=== PATIENT | female | born 1990 | race Caucasian/White ===

== ENCOUNTER 2022-02-07 13:41 | Emergency (ER) | payer MEDICAID, SELFPAY ==
[2022-02-07 13:56] VITALS: BP 101/67; PULSE 63; RESP 18; TEMP 36.3; O2SAT 98; BMI 25.0
--- NOTE | 2022-02-07 14:59 | CRLHL7_ITS ---
For Patients: As a result of the Century Cures Act, medical imaging exams and procedure reports are released immediately into your electronic medical record. You may view this report before your referring provider. If you have questions, please contact your health care provider. Indication: Trauma Technique: Three views of the left foot were acquired Comparison: There are no prior studies for comparison Findings: There is a fracture identified at the medial corner the base the proximal phalanx of left 5th digit. This is probably intra-articular but is not displaced. There is regional soft tissue swelling. No dislocation. Impression: Fracture at the base of the proximal phalanx of the left 5th digit. Dictated by Noe Medley MD @ 02/07/2022 5:09:39 PM (Electronically Signed)
--- NOTE | 2022-02-07 15:02 | ED.LOWEXIN ---
HPI - Extremity Injury (Lower) General Time Seen by Provider: 14:50 Date Seen: 02/07/22 Chief Complaint: Extremity Pain/Injury, Lower Stated Complaint: left foot injury Time Seen by Provider: 02/07/22 14:20 Source: patient Mode of arrival: ambulatory Limitations: no limitations History of Present Illness HPI Narrative: This 31-year-old female comes in with an injury to her left foot. Last evening she was running at a full speed while playing with her dog. They collided and she fell injuring her left foot. She did not hit her head or have loss of consciousness. She has been ambulatory since this injury. Today she has swelling and ecchymosis overlying the MP joint of the 5th digit of her left foot. MD complaint: foot injury Injury: Left: foot Type of Injury: blunt Place: street/outdoors Context: fall Related Data Home Medications Medication Instructions Recorded Confirmed sertraline 100 mg tablet mg 02/07/22 Allergies Allergy/AdvReac Type Severity Reaction Status Date / Time Sulfa (Sulfonamide Allergy Mild Verified 02/07/22 13:56 Antibiotics) Review of Systems Status of ROS: Reports: 10 or more systems reviewed and unremarkable except as noted in History and below Const: Denies: fever Eyes: Denies: change in vision ENMT: Denies: throat pain Cardio: Denies: chest pain or shortness of breath with exertion Resp: Denies: shortness of breath GI: Denies: abdominal pain : Denies: painful urination or urinary frequency Musculo: Denies: back pain Integ/Breast: Denies: rash or itching Neuro: Denies: headache or numbness in extremities Psych: Denies: anxiety Endo: Denies: excessive urination or excessive thirst Carlitos/Lymph: Denies: easy bruising or easy bleeding Exam Const: Vital Signs, click to edit/add: Vital Signs - 24 hr 02/07/22 13:56 Temperature 97.4 F L Pulse Rate [Right Pulse Oximeter] 63 Respiratory Rate 18 Blood Pressure [Ri ght Upper Arm] 101/67 Pulse Oximetry 98 Common normals: no apparent distress and oriented x3 General appearance: cooperative Orientation/consciousness: Yes awake, Yes oriented to person, Yes oriented to place and Yes oriented to time HENMT: Common normals: normocephalic Head and scalp: normocephalic Eye: Common normals: PERRL General eye: normal appearance of both eyes Pupil: PERRL Neck & C-Spine: Common normals: full ROM Chest: Common normals: inspection of chest normal Resp: Common normals: normal respiratory effort Cardio: Common normals: regular rhythm Rhythm: regular rhythm GI: Common normals: Normal to inspection, nondistended, normoactive bowel sounds present : Other: Deferred Back & Pelvis: Common normals: thoracic and lumbar spine normal to inspection Lumbar spine/lower back: normal to inspection Extremity: Left lower extremity: foot and digits (t ) Other: The dorsal aspect and lateral aspect of the 5th MP joint of the left foot has swelling and ecchymosis. Neuro: Common normals: oriented x3 Sensorium/orientation: awake, oriented to person, oriented to place and oriented to time Psych: Common normals: mental status grossly normal Skin: Common normals: no rashes or lesions noted General skin exam: no rashes or lesions noted Course Vital Signs Vital signs: Initial Vital Signs Temperature 97.4 F L 02/07/22 13:56 Temperature Source Temporal Artery Scan 02/07/22 13:56 Pulse Rate 63 02/07/22 13:56 Respiratory Rate 18 02/07/22 13:56 Blood Pressure 101/67 02/07/22 13:56 Blood Pressure Mean 78 02/07/22 13:56 Blood Pressure Position Sitting 02/07/22 13:56 Pulse Oximetry 98 02/07/22 13:56 Oxygen Delivery Method 02/07/22 13:56 Vital Signs Temperature 97.4 F L 02/07/22 13:56 Pulse Rate 63 02/07/22 13:56 Respiratory Rate 18 02/07/22 13:56 Blood Pressure 101/67 02/07/22 13:56 Pulse Oximetry 98 02/07/22 13:56 Temperature 97.4 F L 02/07/22 13:56 Pulse Rate 63 02/07/22 13:56 Respiratory Rate 18 02/07/22 13:56 Blood Pressure 101/67 02/07/22 13:56 Pulse Oximetry 98 02/07/22 13:56 MDM - Extremity Injury (Lower) MDM Narrative Medical decision making narrative: This patient comes in with an injury to her left foot that occurred last evening. X-ray imaging by my review shows normal alignment. There is a suspicion of a avulsion fracture of the MP joint of the 5th metatarsal and phalanges. The patient is ambulatory on this foot and can walk without too much difficulty on the heel. She did receive an Gerardo wrap. She can use [id number] medicines also as needed and directed. A return to work note is provided. Discharge Plan Discharge Clinical Impression: Injury of foot, left Condition: Stable Instructions: Toe Fracture (ED) Activity Level: Activity as Tolerated Prescriptions: No Action sertraline 100 mg tablet 0RF Label Comments: TAKE 1.5 TABLETS BY MOUTH ONCE DAILY. Follow Up/Referrals: Gini Carlisle, [Primary Care Provider] - Stand Alone Forms: MyHealth Info Instructions
== END 2022-02-07 17:23 ==
LOC: ED 17:31
PROVIDERS: Emergency Provider Emergency Medicine Emergency Medical Services; PCP Family Medicine
DX: M79.672 Pain in left foot (principal); X50.1XXA Overexertion from prolonged static or awkward postures, initial encounter
CPT/HCPCS: 73630; 99283; 99284

== ENCOUNTER 2023-01-20 08:30 | Outpatient (RCR) | payer MEDICAID, SELFPAY | END 2023-05-20 23:59 | disposition home or self-care (01) | PROVIDERS: PCP Family Medicine; Visit Provider Family Medicine | DX: M79.644 Pain in right finger(s) (principal); M65.4 Radial styloid tenosynovitis [de Quervain]; M25.531 Pain in right wrist; Z51.89 Encounter for other specified aftercare | CPT/HCPCS: 97033; 97035; 97110; 97140; 97165; 97535; X5282 ==

== ENCOUNTER 2023-04-09 08:45 | Outpatient (RCR) | payer MEDICAID, SELFPAY | END 2023-08-07 23:59 | disposition home or self-care (01) | PROVIDERS: PCP Family Medicine; Visit Provider Physician Assistant | DX: G43.009 Migraine without aura, not intractable, without status migrainosus (principal); R53.1 Weakness; R29.3 Abnormal posture; Z74.09 Other reduced mobility; M54.2 Cervicalgia; G89.29 Other chronic pain; Z51.89 Encounter for other specified aftercare | CPT/HCPCS: 97110; 97140; 97162 ==